=== PATIENT | male | born 1955 | race Caucasian/White ===

== ENCOUNTER 2016-11-10 16:03 | Inpatient (IN) | payer BC, OTHER ==
[~2016-11-10] VITALS: Ht 177.8 cm; Wt 68.5 kg
[2016-11-10 17:01] LABS: Basophils # (auto) 0 uL; Basophils % (auto) 0.4 % (0.0-2.0); Eosinophils # (auto) 0.1 uL; Eosinophils % (auto) 1.8 % (0.0-7.0); Hematocrit 47.4 % (41.0-53.0); Hemoglobin 15.8 g/dL (13.5-17.5); Lymphocytes # (auto) 1.9 uL; Lymphocytes % (auto) 25.6 % (10.0-50.0); Mean Corpuscular Hgb Conc. 33.2 g/dL (32.0-36.0); Mean Corpuscular Volume 90.4 fL (80.0-100.0); Mean Platelet Volume 6.9 fL (7.4-10.4); Monocytes # (auto) 0.5 uL; Monocytes % (auto) 6.8 % (0.0-12.0); Neutrophils # (auto) 4.9 uL; Neutrophils % (auto) 65.4 % (37.0-80.0); Platelet Count (auto) 388 10^3/uL (140-450); Red Cell Distribution Width 13.6 % (11.6-16.0); White Blood Cell 7.5 10^3/uL (4.4-10.8)
[2016-11-10 17:05] LABS: Albumin 3.3 g/dL (3.4-5.0); BUN/Creatinine Ratio 28.4; Calcium 8.3 mg/dL (8.5-10.1); Magnesium 2.6 mg/dL (1.6-2.6); Potassium 3.7 mmol/L (3.5-5.1)
[2016-11-10 17:10] LABS: Bilirubin, Total 0.8 mg/dL (0.2-1.0); Total Protein 7.2 g/dL (6.4-8.2)
[2016-11-10] MEDS ORDERED: ASPirin-EC 81 mg tab PO ONE (20:00)
[2016-11-10] MEDS ORDERED: SODIUM CHLORIDE 0.9% 1,000 ML IV ONE ×2 (20:00→22:30)
[2016-11-10] MEDS ORDERED: ACETAMINOPHEN 325 MG TAB PO PRN (22:30)
[2016-11-10] MEDS ORDERED: NITROGLYCERIN 0.4 MG SL TAB SL PRN (22:30)
[2016-11-10] MEDS ORDERED: MORPHINE SULF INJ 2 MG/ML SYRINGE 1ML IV PRN (22:30)
[2016-11-10] MEDS ORDERED: TEMAZEPAM 15 MG CAP PO PRN (22:30)
[2016-11-10] MEDS ORDERED: ONDANSETRON HCL 4 MG/2 ML VIAL IV PRN (22:30)
[2016-11-10] MEDS ORDERED: HYDROcodone-ACET 5/325MG TAB PO PRN (22:30)
[2016-11-10] MEDS: ENOXAPARIN SOD 40 MG/0.4 ML SYRINGE SC SCH (22:38)
[2016-11-10] MEDS: SODIUM CHLORIDE 0.9% 1,000 ML IV SCH (23:06)
[2016-11-11 04:11] LABS: Basophils # (auto) 0 uL; Basophils % (auto) 0.6 % (0.0-2.0); Eosinophils # (auto) 0.3 uL; Eosinophils % (auto) 6.1 % (0.0-7.0); Hematocrit 39.5 % (41.0-53.0); Hemoglobin 13.2 g/dL (13.5-17.5); Lymphocytes # (auto) 1.4 uL; Lymphocytes % (auto) 31.1 % (10.0-50.0); Mean Corpuscular Hgb Conc. 33.3 g/dL (32.0-36.0); Mean Corpuscular Volume 90.2 fL (80.0-100.0); Mean Platelet Volume 7.3 fL (7.4-10.4); Monocytes # (auto) 0.4 uL; Monocytes % (auto) 9.2 % (0.0-12.0); Neutrophils # (auto) 2.4 uL; Platelet Count (auto) 277 10^3/uL (140-450); Red Cell Distribution Width 13.5 % (11.6-16.0); White Blood Cell 4.6 10^3/uL (4.4-10.8)
[2016-11-11 04:32] LABS: Albumin 2.5 g/dL (3.4-5.0); BUN/Creatinine Ratio 41.6; Bilirubin, Total 0.4 mg/dL (0.2-1.0); Calcium 7.1 mg/dL (8.5-10.1); Potassium 3.6 mmol/L (3.5-5.1); Total Protein 5.6 g/dL (6.4-8.2)
[2016-11-11 08:34] VITALS: BP 126/63
[2016-11-11] MEDS ORDERED: ASPirin 81 mg TAB PO SCH (10:00)
[2016-11-11] MEDS: ENOXAPARIN SOD 40 MG/0.4 ML SYRINGE SC SCH (10:00)
[2016-11-11] MEDS ORDERED: FAMOTIDINE 20 MG TAB PO SCH (10:00)
[2016-11-11] MEDS ORDERED: IOHEXOL 350 MG/ML 100ML IJ ONE (10:16)
[2016-11-11] MEDS ORDERED: METOPROLOL TARTRATE 1MG/1ML-5ML VIAL IV ONE (10:20)
[2016-11-11] MEDS ORDERED: NITROGLYCERIN 0.4 MG SL TAB SL ONE (10:20)
[2016-11-11 12:30] VITALS: BP 126/63
[2016-11-11] MEDS: SODIUM CHLORIDE 0.9% 1,000 ML IV SCH (12:39)
[2016-11-11 13:00] VITALS: BP 117/66
[2016-11-11 17:00] VITALS: BP 117/69
[2016-11-11 18:43] VITALS: BP 117/69
== END 2016-11-11 19:45 | disposition home or self-care (01) | DRG 558 ==
LOC: ER 16:08 → TELE 16:09 → TELE-EAST 11-11 08:27
PROVIDERS: ADMIT Internal Medicine; ATTEND Internal Medicine
DX: M62.82 Rhabdomyolysis (principal); E86.0 Dehydration; Z82.49 Family history of ischemic heart disease and other diseases of the circulatory system; Z71.89 Other specified counseling
CPT/HCPCS: 36415; 71020; 75571; 75574; 80053; 82550; 82962; 83735; 84484; 85025; 93005; 93306; 94761; 96360; 96361